=== PATIENT | male | born 1990 | race Caucasian/White ===

== ENCOUNTER 2017-09-25 22:22 | Emergency (ER) | payer OTHER, MEDICARE ==
[~2017-09-25] VITALS: Ht 177.8 cm; Wt 99.0 kg
[2017-09-25 23:05] VITALS: BP 157/84; PULSE 112; RESP 20; TEMP 98.6; O2SAT 99
[2017-09-25] MEDS ORDERED: IBUP-232 PO (23:23)
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
[2017-09-25] MEDS ORDERED: IBUPROFEN 600 MG TAB PO ONE (23:30)
== END 2017-09-26 00:42 | disposition home or self-care (01) ==
LOC: NEPD 22:22
DX: R10.9 Unspecified abdominal pain (principal); M25.552 Pain in left hip; F39 Unspecified mood [affective] disorder; W31.81XA Contact with recreational machinery, initial encounter; Y92.831 Amusement park as the place of occurrence of the external cause; Y93.I1 Activity, roller coaster riding; Z72.0 Tobacco use
CPT/HCPCS: 99282